=== PATIENT | female | born 1985 | race African-American/Black ===

== ENCOUNTER 2021-09-18 14:12 | Emergency (ER) | payer BC ==
[~2021-09-18] VITALS: Ht 167.6 cm; Wt 76.2 kg
[2021-09-18 14:20] VITALS: BP 152/91
[2021-09-18 14:32] LABS: URINE BILIRUBIN NEGATIVE (Negative); URINE BLOOD TRACE (Negative); URINE CLARITY CLEAR; URINE COLOR YELLOW; URINE GLUCOSE-RANDOM* NEGATIVE (Negative); URINE KETONES NEGATIVE (Negative); URINE LEUKOCYTES-REFLEX NEGATIVE (Negative); URINE NITRITE-REFLEX NEGATIVE (Negative); URINE PROTEIN (DIPSTICK) NEGATIVE (Negative); URINE SPECIFIC GRAVITY >= 1.030 (1.005-1.035); URINE UROBILINOGEN 0.2 E.U./dl (0.2-1.0)
[2021-09-18] MEDS ORDERED: METRONIDAZOLE500 M4 PO (16:05)
== END 2021-09-18 16:14 | disposition home or self-care (01) ==
LOC: ER 14:12
PROVIDERS: Physician Assistant
DX: N76.0 Acute vaginitis (principal); B96.89 Other specified bacterial agents as the cause of diseases classified elsewhere; F12.90 Cannabis use, unspecified, uncomplicated